=== PATIENT | male | born 1965 | race Caucasian/White ===

== ENCOUNTER 2020-02-20 17:52 | Emergency (ER) | payer OTHER ==
[~2020-02-20] VITALS: Ht 177.8 cm; Wt 64.0 kg
--- NOTE | 2020-02-20 18:04 | NUR ---
pt bibra to er bed 01 from urgent care c/o worsening pressure like chest pain x 1 week. pt states pain started to get worse last night. 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 awaiting md leal.
--- NOTE | 2020-02-20 18:05 | NUR ---
dr luevano at bedside for eval.
--- NOTE | 2020-02-20 18:06 | NUR ---
iv line started blood drawn and sent to lab.
[2020-02-20 18:12] LABS: BASOPHILS % (AUTO) 0.9 % (0.0-2.0); EOSINOPHILS % (AUTO) 0.6 % (0.0-6.0); HEMATOCRIT 43 % (39-51); HEMOGLOBIN 14.6 g/dL (13.5-17.5); LYMPHOCYTES % (AUTO) 31.6 % (20.0-44.0); MEAN CORPUSCULAR HGB CONC 34 g/dl (31.0-36.0); MEAN CORPUSCULAR VOLUME 92 fL (80-96); MONOCYTES # (AUTO) 0.2 /CMM (0.1-1.30); MONOCYTES % (AUTO) 7.3 % (2.0-12.0); NEUTROPHILS # (AUTO) 1.9 /CMM (1.8-8.9); NEUTROPHILS % (AUTO) 59.6 % (43.0-81.0); PLATELET COUNT (AUTO) 356 /CMM (150-450); RED BLOOD CELL COUNT(AUTO) 4.66 MIL/uL (4.5-6.0); WHITE BLOOD COUNT (AUTO) 3.2 K/uL (4.3-11.0)
[2020-02-20 18:19] LABS: CARBON DIOXIDE 24 mmol/L (21-32); CHLORIDE 92 mmol/L (98-107); CREATININE 0.8 mg/dL (0.6-1.3); GLUCOSE 73 mg/dL (74-106); POTASSIUM 3.5 mmol/L (3.5-5.1); SODIUM SERUM 128 mmol/L (136-145); UREA NITROGEN, BLOOD 4 mg/dL (7-18)
--- NOTE | 2020-02-20 19:12 | NUR ---
report to night nurse carlota for carl.
--- NOTE | 2020-02-20 19:19 | NUR ---
REPORT RECEIVED FROM CHARLES XAVIER FOR MARILYN
--- NOTE | 2020-02-20 19:52 | NUR ---
Patient discharged to home in stable condition. Written and verbal after care instructions given. Patient verbalizes understanding of instruction.IV removed. Catheter intact and site benign. Pressure and 4x4 applied to site. No bleeding noted.
[2020-02-20 19:53] VITALS: BP 127/84
== END 2020-02-20 19:53 | disposition home or self-care (01) ==
LOC: EDSEX 17:57 → ER 17:57
DX: R07.89 Other chest pain (principal); R06.02 Shortness of breath
CPT/HCPCS: 36415; 71045-TC; 80048-TC; 84484-TC; 85025-TC